=== PATIENT | female | born 1955 | race Caucasian/White ===

== ENCOUNTER 2017-03-06 17:41 | Emergency (ER) | payer MEDICARE ==
[~2017-03-06 17:41] MED LIST: K-DUR20 MEQ PO; NICOTINE TRANSD21 MG TOP; PROAIR HFA8.5 GM IH; ZITHROMAX500 MG PO
== END 2017-03-07 00:57 | disposition short-term general hospital (02) ==
LOC: ER 17:41
DX: C78.7 Secondary malignant neoplasm of liver and intrahepatic bile duct (principal); J44.9 Chronic obstructive pulmonary disease, unspecified; I10 Essential (primary) hypertension; Z88.0 Allergy status to penicillin; F17.210 Nicotine dependence, cigarettes, uncomplicated
CPT/HCPCS: 36415; 96374; 96375; 96376; Q9967